=== PATIENT | female | born 1970 | race Caucasian/White ===

== ENCOUNTER → 2024-11-24 | Outpatient (CLI) | payer SELFPAY ==
--- NOTE | 2024-11-24 09:04 | CT_ITS ---
PROCEDURE: EXTREMITY LOWER WITHOUT CONTRA 11/24/2024 REASON FOR EXAM: TEMPLATING FOR RIGHT TKA TECHNIQUE: Procedure Code: CTELWO Modality: CT Procedure: EXTREMITY LOWER WITHOUT CONTRA Coronal and Sagittal reconstruction series were provided. One or more dose reduction techniques were used (e.g., Automated exposure control, adjustment of the mA and/or kV according to patient size, use of iterative reconstruction technique. RADIATION DOSE SUMMARY: CTDlvol: 56 mGy DLP: 45920 mGycm COMPARISON: None FINDINGS: Right hip: Mild degenerative joint disease. No fracture. No dislocation. No effusion. Visible pelvic structures appear within normal limits. No mass. Atherosclerosis. Right knee: Degenerative changes involving the medial lateral and patellofemoral compartments with large marginal osteophytes off the medial femoral condyle and medial tibial plateau. Osteophytes also present in the medial and lateral patellar facets with joint space narrowing. No joint effusion present. No dislocation. No destructive process. No calcified loose body. Muscle atrophy. Right ankle: Degenerative changes of the medial and lateral compartment of the ankle with widening of the lateral ankle mortise. Calcaneal spurs. Enthesopathy of the Achilles tendon insertion. Vascular calcifications. No joint effusion. Tiny calcified loose body in the lateral aspect of the ankle joint. No soft tissue mass. CT/Extremity Lower without Contra IMPRESSION: Degenerative changes of the hip knee and ankle as described above. No acute osseous abnormality. Reading Location: [facility]
== END | disposition home or self-care (01) ==
LOC: CT 09:03
PROVIDERS: PCP Family Medicine; Referring Provider Orthopaedic Surgery; Visit Provider Orthopaedic Surgery
DX: M17.11 Unilateral primary osteoarthritis, right knee (principal)
CPT/HCPCS: 73700

== ENCOUNTER 2024-12-11 13:27 | Day surgery (SDC) | payer OTHER, SELFPAY ==
[2024-11-24 10:09] LABS: Partial Thromboplast Time 26.7 Seconds (24.1-36.2); Prothrombin Time (Protime)PT. 13.6 SECONDS (11.7-14.9)
[2024-11-24 10:46] LABS: Magnesium 2.0 mg/dL (1.5-2.2)
--- NOTE | 2024-11-24 16:30 | PAT.ANE_ITS ---
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 When Was Last Pacemaker Check QUESTION #4 FULL TEXT: You/Your Family Experience fever (hyperthermia) with Anesthesia Last Oral Intake Last Oral intake: Last Oral Intake NPO since Meds taken in AM with sips of water? Meds patient instructed to take am of surgery PONV PONV - continuous improvement coordinator: PONV - continuous improvement coordinator Female Yes 11/21/24 15:01 HX of Motion Sickness Yes 11/21/24 15:01 HX of N/V After Surgery No 11/21/24 15:01 Non-Smoker Yes 11/21/24 15:01 Duration of Surgery greater Yes 11/21/24 15:01 than 60 minutes Number of Risk Factors 4 11/21/24 15:01 PONV Score Severe Risk 11/21/24 15:01 Height & Weight Height & Weight: Anesthesia: Height & Weight Height 5 ft 5 in 11/08/24 14:29 Respiratory Assessment Respiratory Assessment - continuous improvement coordinator: Respiratory Tract Infection Hx - continuous improvement coordinator Hx Respiratory Tract Infection No 11/21/24 15:01 STOP Sleep Apnea STOP Sleep Apnea - continuous improvement coordinator: STOP Sleep Apnea - continuous improvement coordinator Hx Hypertension Yes: PER PT, CONTROLLED ON 11/21/24 15:01 MEDS Hx Sleep Apnea No 11/21/24 15:01 CPAP BIPAP Do you snore loudly (louder No 11/21/24 15:01 than talking or can be heard Do you often feel tired/ No 11/21/24 15:01 fatigued/ sleepy during daytime? Has anyone observed you stop No 11/21/24 15:01 breathing during sleep? STOP Results Negative 11/21/24 15:01 QUESTION #5 FULL TEXT : Do you snore loudly (louder than talking or can be heard through closed doors)? 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 Specify any problems Hx of Preganancy in last 3 No 11/21/24 15:01 Months Nurse Filling Out Transfusion MGRIFFITH 11/21/24 15:01 & Questions: Date: 11/21/24 11/21/24 15:01 Time: 15:03 11/21/24 15:01 Patient unable to answer at this time (ie. confused, unrespo /Reproduction History /Reproductive History - continuous improvement coordinator: /Reproductive Hx- continuous improvement coordinator Hx Now No 11/21/24 15:01 Gestational Age (in weeks): EDC: Hx Hx Para Hx Section SAB No 11/21/24 15:01 PFSH Medical History PONV (postoperative nausea and vomiting) Wears glasses Anxiety Thyroid disease Arthritis Gastric reflux Shortness of breath on exertion Non-smoker Hypertension Diabetes Home Medications ?Medication ?Instructions ?Recorded ?Last Taken ?Type losartan 50 mg-hydrochlorothiazide 1 tab PO QDAY 04/17 Unknown History 12.5 mg tablet metformin 500 mg tablet 500 mg PO BID 04/17/24 Unkno wn History Allergy/AdvReac Type Severity Reaction Status Date / Time pioglitazone (From Actos) Allergy Swelling Verified 11/24/24 10:53 Family History Father Cancer Hypertension Diabetes Mother Hypertension Surgical History History of esophagogastroduodenoscopy (EGD) History of colonoscopy History of History of gastric bypass History of repair of hiatal hernia History of total hysterectomy History of cholecystectomy Social History Smoking Status: Never smoker alcohol intake: never Audit: Pertinent Findings Pertinent Findings EKG Perinent findings: November 23, 2024. Normal sinus rhythm. Minimal voltage criteria for LVH. 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 Anterior infarct seen on or before October 15, 2014. Additional pertinent findings: November 24, 2024. Hemoglobin A1c is 8.1. Okay to proceed Recommendation Anesthesia Recommendation Anesthesia recommendation: OPTIMIZED for anesthesia
--- NOTE | 2024-11-28 16:01 | NURSING ---
LAB CALLED, PT WITH ANTIBODY IN BLOOD. WILL HAVE 2 UNITS CROSSED FOR SURGERY DATE. DR SEYMOUR AND ANESTHESIA AWARE.
== END 2024-12-11 13:29 | disposition home or self-care (01) ==
LOC: PAT 13:28
PROVIDERS: Anesthesiology; PCP Family Medicine; Referring Provider Orthopaedic Surgery; Visit Provider Orthopaedic Surgery
DX: Z01.818 Encounter for other preprocedural examination (principal); E11.9 Type 2 diabetes mellitus without complications; K21.9 Gastro-esophageal reflux disease without esophagitis; I10 Essential (primary) hypertension; Z53.09 Procedure and treatment not carried out because of other contraindication
CPT/HCPCS: 27447; 36415; 82985; 83036; 83735; 84443; 85610; 85730; 86850; 86870; 86900; 86901; 86902; 86920; 86921; 86922; 87077; 87081

== ENCOUNTER → 2024-12-12 | Outpatient (CLI) | payer OTHER, SELFPAY ==
[2024-12-12 19:14] LABS: CRP < 3.00 mg/L (0.0-3.0)
[2024-12-14 15:08] LABS: Immunoglobulin A 131 mg/dL (87-352)
== END | disposition home or self-care (01) ==
LOC: MTLAB 14:19
PROVIDERS: PCP Family Medicine; Referring Provider Internal Medicine Gastroenterology; Visit Provider Internal Medicine Gastroenterology
DX: R19.7 Diarrhea, unspecified (principal)
CPT/HCPCS: 36415; 82784; 83516; 86140; 86255

== ENCOUNTER 2025-01-16 05:12 | Day surgery (SDC) | payer OTHER, SELFPAY ==
--- NOTE | 2025-01-05 15:57 | PAT.ANESEVAL ---
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 When Was Last Pacemaker Check QUESTION #4 FULL TEXT: You/Your Family Experience fever (hyperthermia) with Anesthesia Last Oral Intake Last Oral intake: Last Oral Intake NPO since Meds taken in AM with sips of water? Meds patient instructed to take am of surgery PONV PONV - auctioneer automobile: PONV - auctioneer automobile Female Yes 01/05/25 12:05 HX of Motion Sickness No 01/05/25 12:05 HX of N/V After Surgery No 01/05/25 12:05 Non-Smoker Yes 01/05/25 12:05 Duration of Surgery greater Yes 01/05/25 12:05 than 60 minutes Number of Risk Factors 3 01/05/25 12:05 PONV Score Moderate Risk 01/05/25 12:05 Height & Weight Height & Weight: Anesthesia: Height & Weight Height 5 ft 5 in 11/08/24 14:29 Respiratory Assessment Respiratory Assessment - auctioneer automobile: Respiratory Tract Infection Hx - auctioneer automobile Hx Respiratory Tract Infection No 01/05/25 12:05 STOP Sleep Apnea STOP Sleep Apnea - auctioneer automobile: STOP Sleep Apnea - auctioneer automobile Hx Hypertension Yes: PER PT, CONTROLLED ON 01/05/25 12:05 MEDS Hx Sleep Apnea No 01/05/25 12:05 CPAP BIPAP Do you snore loudly (louder No 01/05/25 12:05 than talking or can be heard Do you often feel tired/ No 01/05/25 12:05 fatigued/ sleepy during daytime? Has anyone observed you stop No 01/05/25 12:05 breathing during sleep? STOP Results Negative 01/05/25 12:05 QUESTION #5 FULL TEXT : Do you snore loudly (louder than talking or can be heard through closed doors)? 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 Specify any problems Hx of Preganancy in last 3 No 01/05/25 12:05 Months Nurse Filling Out Transfusion VCHRISTIN 01/05/25 12:05 & Questions: Date: 01/05/25 01/05/25 12:05 Time: 12:09 01/05/25 12:05 Patient unable to answer at this time (ie. confused, unrespo /Reproduction History /Reproductive History - auctioneer automobile: /Reproductive Hx- auctioneer automobile Hx Now No 01/05/25 12:05 Gestational Age (in weeks): EDC: Hx Hx Para Hx Section SAB No 01/05/25 12:05 PFSH Medical History PONV (postoperative nausea and vomiting) Wears glasses Anxiety Thyroid disease Arthritis Gastric reflux Shortness of breath on exertion Non-smoker Hypertension Diabetes Home Medications ?Medication ?Instructions ?Recorded ?Last Taken ?Type losartan 50 mg-hydrochlorothiazide 1 tab PO QDAY 04/17/24 Unknown History 12.5 mg tablet metformin 500 mg tablet 500 mg PO DAILY 04/17/24 Unknown History cholecalciferol (vitamin D3) 1,250 1,250 mcg PO QWEEK 01/05/25 Unknown History mcg (50,000 unit) capsule glipizide 10 mg tablet, extended 10 mg PO DAILY 01/05/25 Unknown History release 24 hr magnesium oxide 400 mg (241.3 mg 400 mg PO DAILY 01/05/25 Unknown History magnesium) tablet Allergy/AdvReac Type Severity Reaction Status Date / Time pioglitazone (From MonoLibreos) Allergy Swelling Verified 01/05/25 11:57 Family History Father Cancer Hypertension Diabetes Mother Hypertension Surgical History History of esophagogastroduodenoscopy (EGD) History of colonoscopy History of History of gastric bypass History of repair of hiatal hernia History of total hysterectomy History of cholecystectomy Social History Smoking Status: Never smoker alcohol intake: never Recommendation Anesthesia Recommendation Anesthesia recommendation: OPTIMIZED for anesthesia
[2025-01-16] VITALS (14 sets, daily range): BP systolic 96–124; BP diastolic 62–86; PULSE 76–90; RESP 10–18; TEMP 36–36.3; O2SAT 94–100; BMI 36.6
[2025-01-16] MEDS: Lactated Ringers 1,000 ML 15 ML IV (06:17)
[2025-01-16] MEDS: Magnesium 1 GM over 15 mins IV (06:18)
[2025-01-16] MEDS: Scopolamine 1mg/72hr Patch 1 PATCH TD (06:24)
--- NOTE | 2025-01-16 06:38 | PCM.PRE.AN2 ---
ASA Classification* ASA Classification ASA Classification: 2 Assessment & Plan Anesthesia* Anesthesia Assessment Anesthesia Assessment: Discussed sedation and/or anesthesia options, risks, benefits, and alternatives with patient/parents/legal guardian/POA. Questions invited. The patient/parents/legal guardian/POA seems to understand and agrees to proceed with anesthesia plan. Reviewed the physical assessment, medical history, allergy history and patient home medications list prior to surgery/procedure/anesthetic and documented any changes. Performed airway and anesthesia risk assessments. Anesthesia Type Anesthesia Type: General, MAC, Spinal and Block History Source History Obtained from:: Patient and Chart Anesthesia Focused Assessment* Temperature: 97.4 F Pulse Rate: 90 Blood Pressure: 119/86 Respiratory Rate: 18 Pulse Ox: 96 Oxygen Delivery Method: Room Air Airway Assessment Mouth opens: >3 cm Mallampati Score: II Teeth Condition: Intact Neck Range of motion (ROM): Full ROM Labs Anesthesia Preop lab: CBC CHEMISTRY Magnesium, (1.5-2.2) 2.0 mg/dL 11/24/24, 09:43 TSH, (0.300-4.200) 2.950 uIU/mL 11/24/24, 09:43 COAG PT, (11.7-14.9) 13.6 SECONDS 11/24/24, 09:44 Pre-Assessment Diagnosis/Proposed Procedure Planned Operative Procedure(s): (R) ERAS, Right Total Knee Replacement Robotic Arm Assisted Anesthesia History 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 When Was Last Pacemaker Check QUESTION #4 FULL TEXT: You/Your Family Experience fever (hyperthermia) with Anesthesia Last Oral Intake Last Oral intake: Last Oral Intake NPO since 05:15 01/16/25 05:48 Meds taken in AM with sips of No 01/16/25 05:48 water? Meds patient instructed to take am of surgery PONV PONV - extrusion operator: PONV - extrusion operator Female Yes 01/05/25 12:05 HX of Motion Sickness No 01/05/25 12:05 HX of N/V After Surgery No 01/05/25 12:05 Non-Smoker Yes 01/05/25 12:05 Duration of Surgery greater Yes 01/05/25 12:05 than 60 minutes Number of Risk Factors 3 01/05/25 12:05 PONV Score Moderate Risk 01/05/25 12:05 Height & Weight Height & Weight: Anesthesia: Height & Weight Height 5 ft 5 in 01/16/25 05:48 Weight: 99.9 kg 01/16/25 05:48 Body Mass Index (BMI) 36.6 01/16/25 05:48 Respiratory Assessment Respiratory Assessment - extrusion operator: Respiratory Tract Infection Hx - extrusion operator Hx Respiratory Tract Infection No 01/05/25 12:05 STOP Sleep Apnea STOP Sleep Apnea - extrusion operator: STOP Sleep Apnea - extrusion operator Hx Hypertension Yes: PER PT, CONTROLLED ON 01/05/25 12:05 MEDS Hx Sleep Apnea No 01/05/25 12:05 CPAP BIPAP Do you snore loudly (louder No 01/05/25 12:05 than talking or can be heard Do you often feel tired/ No 01/05/25 12:05 fatigued/ sleepy during daytime? Has anyone observed you stop No 01/05/25 12:05 breathing during sleep? STOP Results Negative 01/05/25 12:05 QUESTION #5 FULL TEXT : Do you snore loudly (louder than talking or can be heard through closed doors)? 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 Specify any problems Hx of Preganancy in last 3 No 01/05/25 12:05 Months Nurse Filling Out Transfusion VCHRISTIN 01/05/25 12:05 & Questions: Date: 01/05/25 01/05/25 12:05 Time: 12:09 01/05/25 12:05 Patient unable to answer at this time (ie. confused, unrespo /Reproduction History /Reproductive History - extrusion operator: /Reproductive Hx- extrusion operator Hx Now No 01/05/25 12:05 Gestational Age (in weeks): EDC: Hx Hx Para Hx Section SAB No 01/05/25 12:05 Active Medications Active Medications: Current Medications Generic Name Dose Route Start Last Admin Trade Name Freq PRN Reason Stop Dose Admin Acetaminophen 1,000 mg 01/16/25 07:30 01/16/25 06:24 Acetaminophen 500 Mg Tablet PO 01/16/25 07:31 1,000 mg PREOP ONE Administration Celecoxib 400 mg 01/16/25 07:30 01/16/25 06:24 Celecoxib 200 Mg Capsule PO 01/16/25 07:31 400 mg PREOP ONE Administration Dexamethasone Sodium Phosphate 10 mg 01/16/25 07:30 Dexamethasone 10 Mg/Ml Vial IV 01/16/25 07:31 INTRAOP ONE Gabapentin 600 mg 01/16/25 07:30 01/16/25 06:24 Gabapentin 600 Mg Tablet PO 01/16/25 07:31 600 mg PREOP ONE Administration Cefazolin Sodium 2 gm/ Sodium 110 mls @ 150 mls/hr 01/16/25 07:30 Chloride IV 01/16/25 08:13 INTRAOP ONE Tranexamic Acid 1,000 mg/ 110 mls @ 660 mls/hr 01/16/25 07:30 Sodium Chloride IV 01/16/25 07:39 INTRAOP ONE Tranexamic Acid 1,000 mg/ 110 mls @ 660 mls/hr 01/16/25 07:30 Sodium Chloride IV 01/16/25 07:39 INTRAOP ONE Lactated Ringer's 1,000 mls @ 125 mls/hr 01/16/25 07:30 IV 01/16/25 15:29 .Q8H HARDY Lactated Ringer's 1,000 mls @ 15 mls/hr 01/16/25 05:45 01/16/25 06:17 IV 15 mls/hr .Q48H HARDY Administration Insulin Human Lispro 1 - 6 unit 01/16/25 07:30 Insulin Lispro 100 Unit/Ml Insuln.Pen SC Q4H PRN PRN BG>/= 180, SEE PROTOCOL Protocol Scopolamine HBr 1 patch 01/16/25 07:30 01/16/25 06:24 Scopolamine 1mg/72hr Patch TD 01/16/25 07:31 1 patch PREOP ONE Administration PFSH Medical History PONV (postoperative nausea and vomiting) Wears glasses Anxiety Thyroid disease Arthritis Gastric reflux Shortness of breath on exertion Non-smoker Hypertension Diabetes Home Medications ?Medication ?Instructions ?Recorded ?Last Taken ?Type losartan 50 mg-hydrochlorothiazide 1 tab PO QDAY 04/17/24 Unknown History 12.5 mg tablet metformin 500 mg tablet 500 mg PO DAILY 04/17/24 Unknown History cholecalciferol (vitamin D3) 1,250 1,250 mcg PO QWEEK 01/05/25 Unknown History mcg (50,000 unit) capsule glipizide 10 mg tablet, extended 10 mg PO DAILY 01/05/25 Unknown History release 24 hr magnesium oxide 400 mg (241.3 mg 400 mg PO DAILY 01/05/25 Unknown History magnesium) tablet Allergy/AdvReac Type Severity Reaction Status Date / Time pioglitazone (From Actos) Allergy Swelling Verified 01/16/25 05:47 Family History Father Cancer Hypertension Diabetes Mother Hypertension Surgical History History of esophagogastroduodenoscopy (EGD) History of colonoscopy History of History of gastric bypass History of repair of hiatal hernia History of total hysterectomy History of cholecystectomy Social History Smoking Status: Never smoker alcohol intake: never Review of Systems (Anesthesia) ROS Narrative System reviewed and no additional complaints, except as documented.
--- NOTE | 2025-01-16 07:10 | HP.PCM_ITS ---
History and Physical
--- NOTE | 2025-01-16 07:10 | PCM.HP.BLA ---
History and Physical Date of Admission: 01/16/25 [facility] [address] [place] [address] OFFICE VISIT Date of Service: 11/08/24 MR#: [id number] Acct: [id number] Name: FLORENCIO MORRIS Rep #: [id number] : 1970 Provider: Dr. Jamaal Vegas DO Age/Sex: 54/F Location: [facility] [place].[facility] Status: Signed Intake Vital Signs 04/17/2507:30 11/08/2513:29 Height 5 ft 5 in 5 ft 5 in Weight: 239 lb 220 lb 6 oz BMI 39.7 36.6 Intake Visit Reasons: RIGHT KNEE Chief Complaint: Right knee pain Accompanied by: Self Is patient in pain?: Yes Pain scale (1-10): 6 Allergies pioglitazone (From [employer]) Allergy (Verified 11/08/24 14:32) Swelling Medications ?Medication ?Instructions ?Recorded ?Confirmed ?Type losartan 50 mg-hydrochlorothiazide 1 tab PO QDAY 04/17/24 11/08/24 History 12.5 mg tablet metformin 500 mg tablet 500 mg PO BID 04/17/24 11/08/24 History Have you fallen in the past year?: No PFSH Medical History Hypertension Diabetes Surgical History History of gastric bypass History of repair of hiatal hernia History of total hysterectomy History of cholecystectomy Family History Father Cancer Hypertension Diabetes Mother Hypertension Social History Smoking Status: Never smoker alcohol intake: never HPI RIGHT KNEE Details: This documentation accurately reflects the service provided and the decisions made by me, Dr. Jamaal Vegas, 11/08/24 0951. Part of today?s visit was documented by Kaylyn Lancaster MA, acting as scribe. FLORENCIO MORRIS is a 54 year old F here today for right knee. Patient states that her pain is a 6 today. She has had a cortisone injection in March. The injections did help, the injections lasted for about 5 months. Patient that she doesn't want to continue doing injections, she would like to discuss surgery options. She states that she hasn't done any physical therapy for her right knee, her right knee hurts too much for that. She is unable to complete her work without having to take frequent breaks. She states the knee is affecting her ambulation and gait. 04/17/2024 visit:53 year old F here today NEW patient medical history significant for diabetes hypertension and obesity BMI 39.7 for right knee pain that she has been having for about 9 months to 1 year. She denies any injury or previous surgery to the knee. Her pain is over her anterior knee and can radiated down her anterior oseguera. She popping clicking, catching, or instability in the knee. She states that when she goes up steps she has to go one at a time. She rides a battery powered bike and has to use the throttle because she is unable to pedal due to her knee pain. She did have xray with her chiropractor which she brought with her on a disc today from 10/19/23. She denies any physical therapy but does use a knee sleeve which sometimes helps depending on how much work she has been doing. She denies injections. She takes Tylenol arthritis for pain as she is unable to take NSAIDs due to her gastric bypass she had in 2012. She sometimes gets numbness and tingling in her leg as well. She notes that she does have some issues with her low back. Plan:Patient is here today for right knee pain. I reviewed xrays that she had taken at her chiropractors office on 10/19/23 and advised her that they do show moderate to severe arthritis in the knee greater in the medial compartment. Her treatment options would be do nothing, weight loss, steroid injection, Voltaren gel 4 times a day, viscosupplementation injections, knee bracing, physical therapy, or a TKA. Patient is unable to take NSAIDs secondary to her gastric bypass she had in 2012. I advised patient that she take 1000mg of Tylenol 3 times a day. Patient does have plans to go to [place] in April and I advised her that if she were to have a steroid injection she would be unable to have a knee replacement for 3 months.she did receive steroid injection today. I did speak with patient that our BMI cutoff is 40 and she is right under our cutoff limit and she should continue to try and lose the weight which I advised her can also help with how long the knee replacement would last her if she chose to have her knee replaced. Ortho Exam General General: Yes no acute distress and Yes well groomed Neurologic: Yes alert and Yes oriented x3 Psychologic: Yes reasonable and appropriate Right Knee Skin/Wound: Yes CDI, No erythema, No ecchymosis and Yes swelling Knee ROM: Yes ROM-Extension -20 to 0 (6) and Yes ROM-Flexion 0-140 (89) Examination: Yes Med jt line tenderness, Yes Pain with flexion and Yes Pain with extention Stability: NML: Anterior Drawer, NML: Posterior Drawer, NML: Valgus 0, NML: Valgus 30, NML: Varus 0 and NML: Varus 30 Patella Translation: 1 Patella Grind: Yes KNEE: - pain or tenderness in calves swelling in bilateral lower legs 2/4 pedal pulses lacking 6 degrees EXT no joint effusion significant stiffness with flexion Left Knee Patella Translation: 1 Constitutional: Well-developed; well-nourished; in no acute distress Eyes: No jaundice ENT: Nares patent; no obvious deformity Cardiovascular: No cyanosis; clubbing; or edema Lymphatic: No adenopathy in area of examination Skin: No rashes or lesions in the area of examination and intact Neurologic: Alert and oriented x 3 Psychiatric: Mood and affect appropriate Supplemental Info 2024 x-ray right knee: Advanced medial compartment arthrosis with varus deformity there is osteophytes in the lateral compartment, Moderate patellofemoral arthrosis with lateral patellar 10/19/2023 x-ray on disc AP and lateral only, moderate to severe medial compartment arthrosis with joint space narrowing and spurring moderate patellofemoral Coding Level of Care Code Off vis,est,level 4 Diagnoses Primary osteoarthritis of right knee M17.11 Osteoarthritis type: primary Assessment and Plan Assessment and Plan (1) Osteoarthritis of right knee: Status: Acute Qualifiers: Osteoarthritis type: primary Qualified Code(s): M17.11 - Unilateral primary osteoarthritis, right knee Orders: Orders Knee 4 or More Views Today M17.11 - Unilateral primary osteoarthritis, right knee Plan Patient is here today for right knee pain. I obtained and reviewed right knee x-rays today in the clinic. Explained that she does have significant arthritis in the knee. Since she has tried nonsurgical treatment options, she cannot have NSAIDs secondary to her gastric bypass, she has had relief with steroid injection for many months but does not want to keep doing this, she states she cannot tolerate physical therapy due to her pain. She states the knee is affecting her quality of life, she is ready to proceed with a right TKA. She has been able to get her BMI under 40. risks, benefits and alternatives of surgery reviewed including but not limited to bleeding, infection, nerve, artery and/or tissue damage, fracture, VTE, mechanical feel of the knee, continued pain, stiffness and expected post-operative course. Spoke to patient that she should plan on 3 months off of work and strongly encourage her to get into an out-patient physical therapy facility as it will be more beneficial than home therapy after joint replacement. She has at increased risk for stiffness postoperatively because of her preoperative stiffness and she would benefit from preoperative rehabilitation with physical therapy. she does need to have her A1C 7.0 or under in order to proceed with surgery. Patient is ready to proceed with surgery as soon as possible. will need a medical clearance prior to surgery. She does see [facility] as her PCP. Spoke to patient about the optional Iovera procedure that is offered for the surgery. Patient would be interested in the Iovera procedure. She will need CT scan for MAKOplasty Tentative surgery date 12/05/2024 same-day surgery. Follow up once surgery is scheduled or sooner if pain, swelling, numbness or associated symptoms, or concerns develop. All questions answered. Patient in agreement of plan. Clinical Quality Measures Falls Risk Screening/Assistive Devices Have you fallen in the past year?: No 11/08/24 1600 <Electronically signed by Jamaal Vegas DO> Date Jamaal Vegas DO I have examined the patient and the H&P has been reviewed. There are no clinical changes since date of exam.
--- NOTE | 2025-01-16 07:30 | KNEE_PTH ---
PATIENT: FLORENCIO MORRIS LOC: [facility] [place] U#:[id number] AGE/SX: 54/F ROOM: RE01/16/[address]: Dr. Jamaal Vegas DO : 1970 BED: DIS: 01/16/2025 SPEC #: [id number] RECD: 01/16/25 10:31 STATUS: NERY REGracie #: [id number] MONICA: 01/16/25 07:[address]: Jamaal Vegas DEPT: SURGICAL PATHOLOGY RECD BY: Rainer Lima ENTERED: 01/16/25 11:27 SP TYPE: TOTAL KNEE OTHR DR: Dr. Delano Ayers MD Tissues: A - Knee, NOS Procedures: Decalcification bone/plaque Surgery Specimen Level III HEADER OPERATION: ERAS, right total knee replacement robotic arm assist PRE-OP DIAGNOSIS: Osteoarthritis of right knee TISSUE SUBMITTED: A- Right knee debrided bone and tissue MICROSCOPIC DIAGNOSIS A. Right knee bone and tissue, total knee arthroplasty: - Articular bone with osteoarthritic reactive and degenerated changes. - Trilineage hematopoiesis. MICROSCOPIC DESCRIPTION Slides are reviewed. GROSS DESCRIPTION A. Received in formalin labeled with the patient's name and date of . Designated as right knee debridement bone and tissue is an 11.8 x 11.0 x 1.6 cm aggregate of valencia-pink to red irregular bone and tissue fragments, collectively comprising a knee joint. The articular cartilage is granular with eburnation and mild to moderate peripheral osteophyte formation. Static Balancer sections are submitted in 2 cassettes, following decalcification. [place] 01/16/2025PT:[id number]
[2025-01-16] MEDS: Epinephrine (1 mg/ml) 1 MG/ML VIAL (09:05)
[2025-01-16] MEDS: 0.9% Normal Saline (Pres. free 10 ML Vial (09:05)
--- NOTE | 2025-01-16 10:08 | RAD_ITS ---
PROCEDURE: RAD/Knee 1 or 2 Views
[2025-01-16] MEDS: Cefazolin 2 GM in 0.9% Normal Saline (100mL Bag) 100 ML IV (10:10)
--- NOTE | 2025-01-16 10:10 | OP.PCM_ITS ---
Operative Report (Standard)
--- NOTE | 2025-01-16 10:10 | PCM.OPRPT ---
Operative Report (Standard) Operative Information Date of Procedure: 01/16/25 Pre-Operative Diagnosis: Right knee DJD Post-Operative Diagnosis: Same Surgery/Procedure Performed: Right total knee arthroplasty roll over press operator: Yes Immigration Case Manager: Irving Jarvis Tasks completed by senior administrative assistant: Implanting device Type of Anesthesia: Spinal RN Documented Start/Stop Times: Operation Date: 01/16/25 07:30 Case Time Into Pre-Op 01/16/25 05:36 Anesthesia Start 01/16/25 07:30 Into Room 01/16/25 07:30 Procedure Start 01/16/25 07:53 Procedure End 01/16/25 10:03 Procedure Start Time: 07:53 Procedure Stop Time: 10:03 Select all DRAINS/GRAFTS/IMPLANTS that apply: Prosthetic device Prosthetic device details: [place] triathlon Estimated Blood Loss: 175 Specimen collected: Yes Description of specimen(s) removed: Bone and soft tissue Description of surgery: Preoperative diagnosis: Right knee DJD Postoperative diagnosis: Same Procedure: Right total knee arthroplasty CT guided Robotic Assisted Implant: [place] triathlon press fit, femoral component size3, tibial baseplate size 3, asymmetric patella size 35 press-fit components cemented in, polyethylene X3 size 9 CS Anesthesia: Spinal with adductor canal block Tourniquet time: 12 minutes at 300 mmHg Complications: None Condition: Stable to PACU Estimated blood loss: 175 cc Findings: Osteoporosis patellar component plan is press-fit however when inserted was not stable and required cementing due to osteoporosis Marine Consultant Irving Jarvis. My physician civil engineering assistant was a vital part of this case. He was important in appropriate retraction during the case, and protection of soft tissues during procedure. His intimate knowledge of the case and my steps aided in safe and expedient completion of the procedure as well as appropriate position of the extremity during the case. He was also vital in assisting with closure under my direct supervision. Indication for procedure: This is a 54-year-old female with long standing degenerative joint disease of the knee who has failed conservative treatment and wished to proceed with elective total knee arthroplasty. Risk benefits and alternatives were reviewed including; risk of bleeding, infection, nerve artery and tissue damage, continued pain, postoperative stiffness, venous thromboembolism, need for postoperative rehabilitation, mechanical feel to the knee, and expected postoperative course. The pre- operative CT and templating was performed with component sizing. Procedure: The patient was met in the preoperative holding area. The operative extremity was identified by both patient and physician and was marked. Patient was met by anesthesia. An adductor canal block was placed by anesthesia postoperatively the patient was brought back to the operating room on a wheeled cart and transferred to the operating table in the supine position. Anesthesia was started. A well-padded tourniquet was placed on the operative extremity. The patient was prepped and draped in the usual sterile fashion. A timeout was called to ensure the proper patient procedure and extremity were being contemplated. An esmarch was used to exsanguinate the extremity. The tourniquet was inflated. A 10 blade scalpel was used to make a midline incision down through the skin and subcutaneous tissue. Skin retractors placed. Bovie and Aquamantis were used to perform meticulous hemostasis. full-thickness flaps were elevated medial and lateral along the joint capsule. A deep blade scalpel was used to perform a medial parapatellar arthrotomy. The knee was brought to full extension. A bovie was used to release the soft tissues off the most proximal aspect of the medial tibial plateau, a three-quarter inch curved osteotome was also used in this process. The infrapatellar fat pad was excised. The suprapatellar fat pad was excised partially anteriorolateraly and portion the anterioromedial pad was elevated from the femur. At this point our intra-articular femoral array was placed at a 45 degree angle proximal and posterior to the medial epicondyle. femoral checkpoint was placed at this time. Our tibial array was placed partially intra incisional 1 stab incision was made for the inferior pin with a 15 blade scaple, and pins were placed and attached to the tibial array , tibial checkpoint was placed in the proximal tibial metaphysis. Tourniquet was let down. At this point registration ruelas were taken throughout the knee . Once the knee was registered we then tensioned the medial and lateral ligaments in extension and 90 degrees of flexion. We then used these numbers to adjust our components within parameters to balance the knee in both flexion and extension once this was done on our monitor we then proceeded with using the robotic arm to make our tibial plateau cut, anterior and posterior chamfer and distal femur cuts. we removed the cut fragments with the use of a bovie and Ashanti, we did use a lamina boat worker to insure we visualized and removed all posterior osteophytes and at this time also used the Aquamantis on the posterior joint capsule. we then trialed and achieved the desired plan with a well-balanced knee. we used the green probe to kaela the corresponding tibial rotation based on our CT template. Lug holes were drilled in the femur the tibia preparation was completed with the appropriate sized base plate pinned based on previous rotation kaela. An appropriate sized fin punch was used on the tibia and 4 corner drill was used for the press fit component and the patella was prepared by first using a caliper to ensure sufficient bone stock and a patellar reamer to remove the desired amount of bone. lug holes drilled for an asymmetric poly. We then brought the knee through range of motion with excellent patellar tracking. We thoroughly irrigated the knee. Trial components were removed a posterior capsular injection was preformed with our standard cocktail. In addition the aqua Mantis was also used to aid in hemostasis. Betadine rinse was allowed to sit and washed out completely. Components were press-fit into place. However the patellar component was not deemed stable enough with press-fit alone was removed and was cemented in the usual fashion. Aricept rinse was then used followed by several more liters of irrigation after it was allowed to sit. The joint capsule was closed with #1 Ethibond [id number] in the upper part of the arthrotomy and #1 Vicryl in the lower part of the arthrotomy. , Followed by 2-0 Vicryl in the subcutaneous tissues with thom in the skin. Arrays and checkpoints were removed prior to closure all counts were correct stab incisions were closed with a staple standard dressing in the form of Mepilex AG for the main incision and a small Mepilex over the pin holes. Thigh-high RUT hose applied over top of dressing. Patient tolerated the procedure well and was directed to PACU in stable condition . There were no intraoperative complications. Surgical Findings: Advanced DJD osteopenia Complications Complications: No
--- NOTE | 2025-01-16 10:14 | DCINST_ITS ---
Discharge Instructions
--- NOTE | 2025-01-16 10:14 | EX.PCM.DISCH ---
Discharge Instructions Diet Discharge Diet: 2000 Calorie Control Diet (Minimize sugars and carbohydrates as postoperative hyperglycemia can increase your risk of infection) Activity Weight Bearing Status: Weight bearing as tolerated Dressing / Incision Call your doctor if you observe: Shortness of breath and Chest pain Additional Dressing/Incision Instructions:: Ice and elevate lower extremities 2 weeks while not ambulating. Ambulation is encouraged. Weight bearing as tolerated. Use assistive devise for stability. Encourage FULL knee extension and flexion 1 time EVERY time you get up and down and MULTIPLE times per day. No showering until 72 hours after surgery. May begin showering postop day #3. Remove the dressing prior to shower and gently wash with warm water and antibacterial soap then pat dry and place abdominal pad (or plain gauze) and RUT hose over top. If you decide not to begin showering 72 hrs post operatively and wish to sponge bath only, then you may leave dressing undisturbed for up to 1 week, but must remove prior to first shower. Do not submerge for 3 weeks. If not showering daily after the initial dressing is removed you must clean incision and change dressing daily after the dressing comes off, must come off by 7 days postop. Do not allow animals near the incision area. Keep clean. Follow anti-coagulation recommendations as prescribed. Do not take any NSAIDs while on blood thinner. Do not take any additional narcotic pain medication other than what was prescribed on your surgery day without discussing with physician. Narcotic medication can be addictive. Do not drink alcohol while taking narcotics. Supplement narcotic prescription with acetaminophen 1000 mg 4 times a day. Start physical therapy. If you are not currently scheduled for physical therapy or you are unsure of appointment time please call office [facility]TH[facility] to arrange. Call Dr. Vegas's office ) with any concerns. Follow Up Care Please Follow Up With: Jamaal Vegas DO When: 2 weeks Test Results: Test results from this visit will be discussed in further detail at your follow-up appointment, if applicable. Discharge Plan Admission Primary Reason for Your Visit: Right total knee arthroplasty Attending Provider: Jamaal Vegas Primary Care Provider: Delano Ayers Instructions Print Language: Persian Discharge Orders/Prescriptions Prescriptions: New acetaminophen 500 mg tablet 1,000 mg PO Q6H Qty: 100 0RF cephalexin 500 mg capsule 1,000 mg PO Q8H Qty: 4 0RF Rx Instructions: Take 2 tabs before you go to bed and 2 tabs after 5 AM morning after surgery when you wake up oxycodone 5 mg tablet 5 - 10 mg PO Q4H PRN (Reason: pain) 7 Days Qty: 60 0RF Eliquis 2.5 mg tablet 2.5 mg PO BID Qty: 28 0RF Rx Instructions: Begin morning after surgery. Continued losartan-hydrochlorothiazide 50-12.5 mg tablet 1 tab PO QDAY metformin 500 mg tablet 500 mg PO DAILY glipizide 10 mg tablet extended release 24hr 10 mg PO DAILY magnesium oxide 400 mg (241.3 mg magnesium) tablet 400 mg PO DAILY cholecalciferol (vitamin D3) 1,250 mcg (50,000 unit) capsule 1,250 mcg PO QWEEK Other Ambulatory Orders: Type & Screen - PAT ONLY (Routine) Timeframe: 20250105 Facility: [facility] - Location: Laboratory Ordered By: Dr. Jamaal Vegas Referrals / Follow Up: Delano Ayers MD [Primary Care Provider, Medical] Disposition Disposition (needs filled in before D/C Order can be placed): Home, Self Care
[2025-01-16] MEDS: LR 1,000 ML - 125 ML/HR POSTOP (NO BOLUS) IV (11:40)
--- NOTE | 2025-01-16 15:11 | POSTOP.ANE_ITS ---
Anesthesia: Postop Eval I
--- NOTE | 2025-01-16 15:11 | PCM.POST.ANE ---
Anesthesia: Postop Eval I Current Vital Signs Temperature: 96.8 F Pulse Rate: 80 Blood Pressure: 110/70 Respiratory Rate: 16 Pulse Ox: 98 Oxygen Delivery Method: Room Air Assessment Airway patent: Yes Spontaneous unlabored respirations: Yes Mental status: Awake nausea: No Vomiting: No Anesthesia Complication: No Fluid Hydration Crystalloid volume administer (ml): 2,000 Total IV fluid infused: 2,000 Progress Note Anesthesia document: Postop Eval 1 completed: Yes
--- NOTE | 2025-01-16 15:22 | POSTOPAN2_ITS ---
Anesthesia Postop Eval I Sum
--- NOTE | 2025-01-16 15:22 | PCM.POSTANE2 ---
Anesthesia Postop Eval I Sum Postop Eval Completion status Anesthesia document: Postop Eval 1 completed: Yes Anesthesia Postop Eval I Summary Anesthesia Postop Eval I Summary: Anesthesia Postop Eval I: Assessment Summary Airway patent Yes 01/16/25 15:12 ELEMENTARY ELL TEACHER.JCLI Spontaneous unlabored Yes 01/16/25 15:12 ELEMENTARY ELL TEACHER.JCLI respirations Mental status Awake 01/16/25 15:12 ELEMENTARY ELL TEACHER.JCLI nausea No 01/16/25 15:12 ELEMENTARY ELL TEACHER.JCLI Vomiting No 01/16/25 15:12 ELEMENTARY ELL TEACHER.JCLI Anesthesia Postop Eval I: Fluid Summary Crystalloid volume administer 2,000 01/16/25 15:12 ELEMENTARY ELL TEACHER.JCLI (ml) Colloids volume administered ( ml) Blood Product volume administered (ml) Total IV fluid infused 2,000 01/16/25 15:12 ELEMENTARY ELL TEACHER.JCLI Anesthesia Postop Eval I: Summary Notes Anesthesia Complication No 01/16/25 15:12 ELEMENTARY ELL TEACHER.LI Anesthesia Complication Comment: Post-operative progress note Anesthesia: Postop Eval II Evaluation Mental status: Awake and Calm Pain Level: 1 nausea: No Vomiting: No Complications Anesthesia Complication: No
== END 2025-01-16 16:08 | disposition home or self-care (01) ==
LOC: SDC 05:12 → AC 05:13
PROVIDERS: PCP Family Medicine; Referring Provider Orthopaedic Surgery; Visit Provider Orthopaedic Surgery
PROC: 0SRC0JZ Replacement of Right Knee Joint with Synthetic Substitute, Open Approach (ICD-10-PCS; CPT 27447; principal; 2025-01-16 07:00)
DX: M17.11 Unilateral primary osteoarthritis, right knee (principal); E11.9 Type 2 diabetes mellitus without complications; Z79.84 Long term (current) use of oral hypoglycemic drugs; I10 Essential (primary) hypertension; Z98.84 Bariatric surgery status; K21.9 Gastro-esophageal reflux disease without esophagitis
CPT/HCPCS: 27447; S2900; 01402; 64448; 73560; 82962; 86850; 86870; 86900; 86901; 86920; 86922; 88304; 88311; 97162; C1776; J2405; J3475